=== PATIENT | male | born 1955 | race Caucasian/White ===

== ENCOUNTER 2020-05-12 20:53 | Inpatient (IN) | payer MEDICARE ==
[~2020-05-12] VITALS: Ht 170.2 cm; Wt 95.2 kg
[2020-05-12 21:32] LABS: HEMOGLOBIN 15.2 gm/dl (14.0-17.5); RED BLOOD COUNT 5.06 M/UL (4.20-5.50); WHITE BLOOD COUNT 8.9 K/UL (4.5-11.0)
[2020-05-12 21:55] LABS: BUN/CREATININE RATIO 14 (0-10)
[2020-05-13] MEDS ORDERED: CYCLOBENZAPRINE5 MG PO (10:06)
[2020-05-13] MEDS ORDERED: TOUJEO MAX300 UNIT/1 SQ (10:37)
[2020-05-13] MEDS ORDERED: URSODIOL300 MG PO (10:37)
[2020-05-13] MEDS ORDERED: AMARYL 2MG TABLE2 MG PO (10:38)
[2020-05-13] MEDS ORDERED: BREZTRI AEROS10.7 GM INH (10:38)
[2020-05-13] MEDS ORDERED: FUROSEMIDE40 MG PO (10:39)
[2020-05-13] MEDS ORDERED: EFFEXOR XR 75 M75 MG PO (10:39)
[2020-05-13] MEDS ORDERED: POTASSIUM CHLO20 ME1 PO (10:39)
[2020-05-13] MEDS ORDERED: GLUCOPHAGE1000 MG PO (10:52)
[2020-05-13] MEDS ORDERED: ALBUTEROL1.25 MG/3 INH (10:53)
[2020-05-13] MEDS ORDERED: ELIQUIS 2.5 MG2.5 MG PO (10:54)
[2020-05-13] MEDS ORDERED: SINGULAIR10 MG PO (10:54)
[2020-05-13] MEDS ORDERED: ASPIRIN EC81 MG PO (10:55)
[2020-05-13] MEDS ORDERED: COREG6.25 MG PO (10:55)
[2020-05-14 03:37] LABS: HEMOGLOBIN 14.7 gm/dl (14.0-17.5); RED BLOOD COUNT 4.98 M/UL (4.20-5.50)
[2020-05-14 03:45] LABS: WHITE BLOOD COUNT 16.8 K/UL (4.5-11.0)
[2020-05-14 04:30] LABS: BUN/CREATININE RATIO 19 (0-10)
[2020-05-15 03:18] LABS: HEMOGLOBIN 14.5 gm/dl (14.0-17.5); RED BLOOD COUNT 4.93 M/UL (4.20-5.50); WHITE BLOOD COUNT 14.8 K/UL (4.5-11.0)
[2020-05-15 03:37] LABS: BUN/CREATININE RATIO 23 (0-10)
[2020-05-15] MEDS ORDERED: LEVOFLOXACIN750 MG PO (09:41)
[2020-05-15] MEDS ORDERED: ELIQUIS 5 MG TAB5 MG PO (09:41)
[2020-05-15] MEDS ORDERED: PREDNISONE 20 M20 MG GT (09:41)
[2020-05-15] MEDS ORDERED: DOXYCYCLINE HY100 MG PO (09:41)
[2020-05-15] MEDS ORDERED: [UNRECOGNIZED DRUG - OTHER] TP (09:46)
[2020-05-15 14:11] LABS: ORGANISM ID Not indicated. (.); SPECIMEN SOURCE Urine (.); STREPTOCOCCUS PNEUMONIAE AG Negative (Negative)
== END 2020-05-15 15:12 | disposition home health service (06) | DRG 196 ==
LOC: ER1 20:53 → CDU 22:06 → PROG CARE 05-13 13:58
PROVIDERS: Emergency Medicine; Internal Medicine Pulmonary Disease; ADMIT Internal Medicine
DX: J84.10 Pulmonary fibrosis, unspecified (principal); J18.9 Pneumonia, unspecified organism; J96.21 Acute and chronic respiratory failure with hypoxia; I48.20 Chronic atrial fibrillation, unspecified; J44.1 Chronic obstructive pulmonary disease with (acute) exacerbation; J44.0 Chronic obstructive pulmonary disease with (acute) lower respiratory infection; I50.30 Unspecified diastolic (congestive) heart failure; Z66 Do not resuscitate; I11.9 Hypertensive heart disease without heart failure; E11.40 Type 2 diabetes mellitus with diabetic neuropathy, unspecified; Z20.822 Contact with and (suspected) exposure to COVID-19; E66.9 Obesity, unspecified; J84.115 Respiratory bronchiolitis interstitial lung disease; T38.0X5A Adverse effect of glucocorticoids and synthetic analogues, initial encounter; E03.9 Hypothyroidism, unspecified; I11.0 Hypertensive heart disease with heart failure; Z68.33 Body mass index [BMI] 33.0-33.9, adult; Z84.89 Family history of other specified conditions; Z83.3 Family history of diabetes mellitus; Z87.891 Personal history of nicotine dependence; Y92.89 Other specified places as the place of occurrence of the external cause
CPT/HCPCS: ECHO; 36415; 36600; 71045; 71046; 71275; 80053; 82550; 82553; 82728; 82803; 82962; 83036; 83605; 83615; 83735; 83874; 83880; 84100; 84439; 84443; 84484; 85025; 85379; 85384; 85610; 85652; 85730; 86140; 87040; 87081; 87278; 87899; 93005; 93306; 93970; 94640; 94660; 94664; 94760; 96365; 96366; 96367; 96375; 99285; C9113; J0456; J0696; J1940; J2543; J2920; J2930; Q9967; U0002

== ENCOUNTER 2020-05-18 16:22 | Emergency (ER) | payer MEDICARE ==
[~2020-05-18 16:22] MED LIST: ALBUTEROL1.25 MG/3 INH; AMARYL 2MG TABLE2 MG PO; ASPIRIN EC81 MG PO; BREZTRI AEROS10.7 GM INH; COREG6.25 MG PO; CYCLOBENZAPRINE5 MG PO; DOXYCYCLINE HY100 MG PO; EFFEXOR XR 75 M75 MG PO; ELIQUIS 2.5 MG2.5 MG PO; ELIQUIS 5 MG TAB5 MG PO; FUROSEMIDE40 MG PO; GLUCOPHAGE1000 MG PO; LEVOFLOXACIN750 MG PO; POTASSIUM CHLO20 ME1 PO; PREDNISONE 20 M20 MG GT; SINGULAIR10 MG PO; TOUJEO MAX300 UNIT/1 SQ; URSODIOL300 MG PO; [UNRECOGNIZED DRUG - OTHER] TP
[2020-05-18 20:25] LABS: RED BLOOD COUNT 5.66 M/UL (4.20-5.50); WHITE BLOOD COUNT 14.6 K/UL (4.5-11.0)
[2020-05-18 20:30] LABS: HEMOGLOBIN 16.9 gm/dl (14.0-17.5)
[2020-05-18 20:52] LABS: BUN/CREATININE RATIO 27 (0-10)
== END 2020-05-18 21:22 | disposition home or self-care (01) ==
LOC: ER1 16:22
PROVIDERS: Physician Assistant Medical
DX: R04.0 Epistaxis (principal); I48.91 Unspecified atrial fibrillation; E11.9 Type 2 diabetes mellitus without complications; Z79.899 Other long term (current) drug therapy; Z87.891 Personal history of nicotine dependence; Z88.8 Allergy status to other drugs, medicaments and biological substances
CPT/HCPCS: 80053; 85025; 85610; 99283